=== PATIENT | male | born 1990 | race African-American/Black ===

== ENCOUNTER 2024-07-18 15:06 | Emergency (ER) | payer OTHER ==
[~2024-07-18] VITALS: Ht 170.2 cm; Wt 100.0 kg
[2024-07-18 15:17] VITALS: BP 136/80; PULSE 90; RESP 16; TEMP 97.8; O2SAT 100
== END 2024-07-18 18:17 | disposition left against medical advice (07) ==
LOC: ER 15:06
DX: M79.606 Pain in leg, unspecified (principal); Z53.21 Procedure and treatment not carried out due to patient leaving prior to being seen by health care provider